=== PATIENT | male | born 1990 | race Caucasian/White ===

== ENCOUNTER 2019-12-09 22:28 | Emergency (ER) | payer SELFPAY ==
[2019-12-10] MEDS ORDERED: ACETAMINOPHEN 500 MG TAB ONE (00:09)
--- NOTE | 2019-12-10 00:15 | EDPHYS ---
Physician Documentation [facility] Name: Paco Bourgeois Age: 29 yrs Sex: Male : 1990 Arrival Date: 12/09/2019 Time: 22:30 Bed 10 Private MD: ED Physician Reilly Cruz HPI: 12/08 23:15 This 29 yrs old Male presents to ER via Ambulatory with complaints of Cough. cp 23:15 The patient or guardian reports cough, that is intermittent, with no sputum. Onset: The cp symptoms/episode began/occurred today. Severity of symptoms: in the emergency department the symptoms are unchanged, despite home interventions. Associated signs and symptoms: Pertinent positives: sore throat, headache, body aches, Pertinent negatives: chest pain, diarrhea, fever, vomiting. Historical: - Allergies: 22:58 No Known Allergies; lp1 - Home Meds: 22:58 None [Active]; lp1 - PMHx: 22:58 None; lp1 - PSHx: 22:58 None; lp1 - Immunization history:: Adult Immunizations up to date, Flu vaccine is not up to date. - Social history:: Smoking status: Patient reports the use of cigarette tobacco products, smokes one-half pack cigarettes per day. ROS: 23:20 Constitutional: Positive for body aches, Negative for chills, fatigue, fever, poor PO cp intake. 23:20 Eyes: Negative for injury, pain, redness, and discharge. cp 23:20 ENT: Positive for sore throat, Negative for drainage from ear(s), ear pain, difficulty swallowing, difficulty handling secretions. 23:20 Cardiovascular: Negative for chest pain, palpitations. 23:20 Respiratory: Positive for cough, with no reported sputum, Negative for shortness of breath, wheezing. 23:20 Abdomen/GI: Negative for abdominal pain, nausea, vomiting, and diarrhea. 23:20 Skin: Negative for rash. 23:20 Neuro: Positive for headache, Negative for altered mental status, weakness. 23:20 All other systems are negative. Exam: 23:30 Constitutional: The patient appears in no acute distress, alert, awake, non-toxic, well cp developed, well nourished. 23:30 Head/Face: Normocephalic, atraumatic. cp 23:30 Eyes: Periorbital structures: appear normal, Conjunctiva: normal, no exudate, no injection, Lids and lashes: appear normal, bilaterally. 23:30 ENT: External ear(s): are unremarkable, Ear canal(s): are normal, clear, TM's: dullness, bilaterally, Nose: is normal, Mouth: Lips: moist, Oral mucosa: moist, Posterior pharynx: Airway: no evidence of obstruction, patent, Tonsils: no enlargement, no exudate, Uvula: midline, swelling, is not appreciated, erythema, that is mild, exudate, is not appreciated. 23:30 Neck: ROM/movement: is normal, is supple, without pain, no range of motions limitations, no meningismus, Lymph nodes: no appreciated lymphadenopathy. 23:30 Chest/axilla: Inspection: normal, Palpation: is normal, no crepitus, no tenderness. 23:30 Cardiovascular: Rate: normal, Rhythm: regular. 23:30 Respiratory: the patient does not display signs of respiratory distress, Respirations: normal, no use of accessory muscles, no retractions, labored breathing, is not present, Breath sounds: are clear throughout, no decreased breath sounds, no stridor, no wheezing. 23:30 Abdomen/GI: Exam negative for discomfort, distension, guarding, Inspection: abdomen appears normal. 23:30 Skin: no rash present. Vital Signs: 22:58 BP 115 / 86; Pulse 67; Resp 18; Temp 98.1(O); Pulse Ox 99% on R/A; Weight 113.4 kg (R); lp1 Height 6 ft. 5 in. (195.58 cm); Pain 0/10; 22:58 Body Mass Index 29.65 (113.40 kg, 195.58 cm) lp1 MDM: 23:19 Patient medically screened. cp 12/09 00:00 Differential Diagnosis: Bronchitis Influenza Upper Respiratory Infection Pharyngitis cp Viral Syndrome Pneumonia. 00:15 Data reviewed: vital signs, nurses notes, lab test result(s), and as a result, I will cp discharge patient. 00:15 Counseling: I had a detailed discussion with the patient and/or guardian regarding: the cp historical points, exam findings, and any diagnostic results supporting the discharge/admit diagnosis, lab results, to return to the emergency department if symptoms worsen or persist or if there are any questions or concerns that arise at home. 12/08 23:04 Order name: Flu tw4 12/08 23:04 Order name: Strep tw4 12/08 23:58 Order name: Throat Culture EDMS Administered Medications: 00:29 Drug: Tylenol 1000 mg Route: PO; lp1 00:29 Follow up: Response: Medication administered at discharge. lp1 00:29 Drug: Tessalon Perle 200 mg Route: PO; lp1 00:29 Follow up: Response: Medication administered at discharge. lp1 Disposition: 05:00 Co-signature as Attending Physician, Reilly Cruz MD. tw4 05:01 I agree with the assessment and plan of care. tw4 Disposition: 12/10/19 00:15 Discharged to Home. Impression: Acute upper respiratory infection, unspecified. - Condition is Stable. - Discharge Instructions: Upper Respiratory Infection, Adult. - Prescriptions for Tessalon Perles 100 mg Oral Capsule - take 2 capsule by ORAL route every 8 hours As needed; 30 capsule. Albuterol Sulfate 90 mcg/actuation - inhale 1-2 puff by INHALATION route every 4-6 hours; 1 Inhaler. - Medication Reconciliation Form, Thank You Letter, Antibiotic Education, Prescription Opioid Use form. - Follow up: Private Physician; When: 2 - 3 days; Reason: Worsening of condition. - Problem is new. - Symptoms have improved. Signatures: Dispatcher [employer] EDMO Tashia Winston RN RN lp1 Andrey Santos PA PA cp Wadley, Terrence, MD MD tw4 Corrections: (The following items were deleted from the chart) 00:31 00:15 12/10/2019 00:15 Discharged to Home. Impression: Acute upper respiratory lp1 infection, unspecified. Condition is Stable. Forms are Medication Reconciliation Form, Thank You Letter, Antibiotic Education, Prescription Opioid Use. Follow up: Private Physician; When: 2 - 3 days; Reason: Worsening of condition. Problem is new. Symptoms have improved. cp 22:12/08 11:45 This 29 yrs old Male presents to ER via Ambulatory with cp complaints of Cough. cp 12/09 22:10 12/08 11:45 The patient or guardian reports cough, that is intermittent, cp cp 12/09 22:10 12/08 11:45 Onset: The symptoms/episode began/occurred today, cp cp 12/09 22:10 12/08 11:45 Associated signs and symptoms: Pertinent positives: sore throat, headache, cp Pertinent negatives: chest pain, diarrhea, fever, vomiting, cp
--- NOTE | 2019-12-10 00:15 | ER ---
Nurse's Notes [facility] Name: Paco Bourgeois Age: 29 yrs Sex: Male : 1990 Arrival Date: 12/09/2019 Time: 22:30 Bed 10 Private MD: Diagnosis: Acute upper respiratory infection, unspecified Presentation: 12/08 22:56 Chief complaint: Patient states: Headache for a few days, began to have dry itchy lp1 throat about 2 hours ago, body aches; Denies any fever; Sent from work due to coughing; Denies productive cough. Coronavirus screen: The patient has NOT traveled to a country currently being monitored by the [facility][NOTE 3] within the last 14 days. The patient has NOT had contact with any known and/or suspected case of coronavirus. Ebola Screen: No symptoms or risks identified at this time. Risk Assessment: Do you want to hurt yourself or someone else? Patient reports no desire to harm self or others. Onset of symptoms was December 09, 2019. 22:56 Method Of Arrival: Ambulatory lp1 22:56 Acuity: JS 4 lp1 22:58 Initial Sepsis Screen: Does the patient meet any 2 criteria? No. Patient's initial lp1 sepsis screen is negative. Does the patient have a suspected source of infection? No. Patient's initial sepsis screen is negative. Historical: - Allergies: 22:58 No Known Allergies; lp1 - Home Meds: 22:58 None [Active]; lp1 - PMHx: 22:58 None; lp1 - PSHx: 22:58 None; lp1 - Immunization history:: Adult Immunizations up to date, Flu vaccine is not up to date. - Social history:: Smoking status: Patient reports the use of cigarette tobacco products, smokes one-half pack cigarettes per day. Screenin:25 Abuse screen: Denies threats or abuse. Denies injuries from another. Nutritional lp1 screening: No deficits noted. Tuberculosis screening: No symptoms or risk factors identified. Fall Risk None identified. Assessment: 23:24 General: Appears in no apparent distress. Behavior is calm, cooperative, appropriate lp1 for age. Pain: Denies pain. Neuro: Level of Consciousness is awake, alert, obeys commands, Oriented to person, place, time, situation. Cardiovascular: Patient's skin is warm and dry. Respiratory: Reports cough that is Respiratory effort is even, unlabored, Breath sounds are clear bilaterally. Denies shortness of breath. GI: No signs and/or symptoms were reported involving the gastrointestinal system. : No signs and/or symptoms were reported regarding the genitourinary system. EENT: Reports nasal congestion. Derm: Skin is pink, warm \T\ dry. Musculoskeletal: No deficits noted. 12/09 00:30 Reassessment: patient demonstrates understanding of discharge instructions; States will lp1 be able to return to work in 48 hours per work policy. Vital Signs: 12/08 22:58 BP 115 / 86; Pulse 67; Resp 18; Temp 98.1(O); Pulse Ox 99% on R/A; Weight 113.4 kg (R); lp1 Height 6 ft. 5 in. (195.58 cm); Pain 0/10; 22:58 Body Mass Index 29.65 (113.40 kg, 195.58 cm) lp1 ED Course: 22:30 Patient arrived in ED. ag3 22:57 Triage completed. lp1 22:57 Arm band placed on right wrist. lp1 23:16 Andrey Santos PA is PHCP. cp 23:16 Reilly Cruz MD is Attending Physician. cp 23:24 Tashia Winston RN is Primary Nurse. lp1 23:25 Patient has correct armband on for positive identification. lp1 23:25 No provider procedures requiring assistance completed. Patient did not have IV access lp1 during this emergency room visit. Administered Medications: 12/09 00:29 Drug: Tylenol 1000 mg Route: PO; lp1 00:29 Follow up: Response: Medication administered at discharge. lp1 00:29 Drug: Tessalon Perle 200 mg Route: PO; lp1 00:29 Follow up: Response: Medication administered at discharge. lp1 Outcome: 00:15 Discharge ordered by MD. cp 00:30 Discharged to home ambulatory. lp1 00:30 Condition: good 00:30 Discharge instructions given to patient, Instructed on discharge instructions, follow up and referral plans. medication usage, Demonstrated understanding of instructions, follow-up care, medications, Prescriptions given X 2. 00:31 Patient left the ED. lp1 Signatures: Tashia Winston RN RN lp1 Andrey Santos PA PA cp Chin, Any ag3
[2019-12-10] MEDS ORDERED: BENZONATATE 100 MG CAP PO ONE (00:28)
[2019-12-10 00:39] VITALS: BP 115/86; TEMP 98.1; O2SAT 99
== END 2019-12-10 00:31 | disposition home or self-care (01) ==
LOC: ER 22:28
DX: J06.9 Acute upper respiratory infection, unspecified (principal)
CPT/HCPCS: 87070; 87081; 87804; 99283